=== PATIENT | male | born 2005 | race Caucasian/White ===

== ENCOUNTER 2025-03-07 10:29 | Emergency (ER) | payer OTHER ==
[2025-03-07 10:55] LABS: #Basophils 0.03 10x3/uL (0.0-0.2); #Eosinophils 0.10 10x3/uL (0.0-0.5); #Monocytes 0.22 10x3/uL (0.0-1.1); #Neutrophils 3.55 10x3/uL (1.5-8.4); %Basophils 0.6 % (0.0-2.0); %Eosinophils 1.9 % (0.0-6.0); %Lymphocytes 24.5 % (18.0-47.0); %Monocytes 4.2 % (0.0-10.0); %Neutrophils 68.6 % (40.0-75.0); Hematocrit 46.0 % (38.8-50.0); Hemoglobin 15.8 g/dL (13.5-17.5); Mean Corpuscular Hemoglobin 30.3 pg (27.0-33.0); Mean Corpuscular Volume 88.3 fL (81.2-95.1); Platelet Count 209 10x3/uL (150-450); Red Blood Cell (RBC) Count 5.21 10x6/uL (4.32-5.72); White Blood Cell (WBC) Count 5.18 10x3/uL (3.5-10.5)
[2025-03-07 11:15] LABS: Troponin I Less than 0.010 ng/mL (< 0.028)
[2025-03-07 11:16] LABS: ALT (SGPT) 25 U/L (Less than 45); AST (SGOT) 25 U/L (11-34); Albumin 5.1 g/dL (3.1-4.5); Alkaline Phosphatase 110 U/L (50-130); Anion Gap 13 mmol/L (10-20); BUN (Urea Nitrogen) 16 mg/dL (8.9-20.6); Bilirubin, Total 1.3 mg/dL (0.3-1.2); Calc. Creatinine Clearance 0 mL/min (70-130); Calcium 9.9 mg/dL (7.8-10.44); Carbon Dioxide 27 mmol/L (22-29); Chloride 104 mmol/L (98-107); Globulin 2.8 g/dL (2.4-3.5); Glucose 97 mg/dL (70-105); Potassium 4.0 mmol/L (3.5-5.1); Sodium 140 mmol/L (136-145)
== END 2025-03-07 15:18 | disposition home or self-care (01) ==
LOC: CSHERS 10:29
DX: R07.9 Chest pain, unspecified (principal); R00.2 Palpitations
CPT/HCPCS: 36415; 71045; 80053; 84484; 85025; 87428; 93005; 94760; J2060